=== PATIENT | male | born 1975 | race Caucasian/White ===

== ENCOUNTER 2018-04-09 17:11 | Emergency (ER) | payer OTHER ==
--- NOTE | 2018-04-09 17:28 | EDPHY ---
H & P Stated Complaint: Elevated blood pressure, arm discomfort Time Seen by Provider: 04/09/18 17:28 HPI/ROS: CHIEF COMPLAINT: Hypertension, chest discomfort HISTORY OF PRESENT ILLNESS: The patient presents to the ED with some vague discomfort in his left upper chest. The patient reported he noticed the symptoms earlier today. The patient does have a history of hypertension and had previously been on lisinopril. He started retaking the medication 3 days ago secondary to recurrent hypertension. The patient has no history of coronary artery disease. He has no other risk factors for heart disease. He denies any exertional chest pain or shortness of breath. The patient states that his symptoms may "just be psychosomatic" secondary to his recent re- initiation of medication for hypertension. REVIEW OF SYSTEMS: A comprehensive 10 point review of systems is otherwise negative aside from elements mentioned in the history of present illness. Source: Patient Exam Limitations: No limitations - Personal History Current Tetanus/Diphtheria Vaccine: No Current Tetanus Diphtheria and Acellular Pertussis (TDAP): No - Medical/Surgical History Hx Asthma: Yes Hx Chronic Respiratory Disease: No Hx Diabetes: No Hx Cardiac Disease: No Hx Renal Disease: No Hx Cirrhosis: No Hx Alcoholism: No Hx HIV/AIDS: No Hx Splenectomy or Spleen Trauma: No Other PMH: HTN, asthma, - Social History Smoking Status: Never smoked - Physical Exam Exam: General Appearance: Alert, no distress Eyes: Pupils equal and round no pallor or injection ENT, Mouth: Mucous membranes moist Respiratory: There are no retractions, lungs are clear to auscultation Cardiovascular: Regular rate and rhythm Gastrointestinal: Abdomen is soft and nontender, no masses, bowel sounds normal Neurological: 5/5 strength all 4 extremities Skin: Warm and dry, no rashes Musculoskeletal: Neck is supple nontender Extremities: symmetrical, full range of motion Constitutional: Initial Vital Signs Temperature (C) 36.6 C 04/09/18 17:22 Heart Rate 62 04/09/18 17:22 Respiratory Rate 16 04/09/18 17:22 Blood Pressure 157/93 H 04/09/18 17:22 O2 Sat (%) 97 04/09/18 17:22 O2 Delivery Mode Room Air Allergies/Adverse Reactions: No Known Allergies Allergy (Unverified 04/09/18 17:22) Home Medications: Medication Instructions Recorded Lisinopril 04/09/18 Medical Decision Making - Diagnostics EKG Interpretation: EKG: Complete interpretation has been separately recorded in the [email or web address] archive. Summary impression: Sinus rhythm, rate 60 ED Course/Re-evaluation: The patient presents to the ED after an episode of atypical chest pain. The patient has a normal EKG and negative troponin. The patient is felt to be low risk for ACS. The patient is also noted to have will control blood pressure in the emergency department. This point time I do feel the patient can follow up with his primary care provider. I have advised him to have a low threshold for seeking further evaluation with Cardiology for consideration of treadmill stress testing. The patient has been informed that we cannot fully exclude the presence of coronary artery disease based upon the testing in the ED. Patient is comfortable being discharged home. He is given customary aftercare and return precautions. Differential Diagnosis: Differential diagnosis considered includes acute coronary syndrome, pericarditis , hypertensive emergency, anxiety reaction, esophageal spasm - Data Points Laboratory Results: Laboratory Results 04/09/18 18:15 04/09/18 18:15 Sodium 141 mEq/L mEq/L (135-145) Potassium 4.4 mEq/L mEq/L (3.3-5.0) Chloride 104 mEq/L mEq/L (97-110) Carbon Dioxide 24 mEq/l mEq/l (22-31) Anion Gap 13 mEq/L mEq/L (8-16) BUN 16 mg/dL mg/dL (7-23) Creatinine 0.8 mg/dL mg/dL (0.7-1.3) Estimated GFR > 60 Glucose 107 mg/dL H mg/dL (70-100) Calcium 8.8 mg/dL mg/dL (8.5-10.4) Troponin I < 0.012 ng/mL ng/mL (0.000-0.034) Departure - Departure Disposition: Home, Routine, Self-Care Clinical Impression: Chest pain Condition: Good Instructions: Chest Pain (ED) Additional Instructions: 1. Based upon the testing done in the Emergency Department today we see no evidence of a heart attack. 2. We are unable to fully exclude coronary artery disease based upon the testing available in the Emergency Department. 3. For this reason, we would like you to be seen by cardiology for consideration of additional testing within the next 3 days. 4. Please contact the imaging center manager you have been referred to schedule this appointment as soon as possible. Their offices are typically open from 8:30am- 5pm M-F. 5. Please return to the Emergency Department immediately for any recurrent chest pain, difficulty breathing or other concerns. Referrals: Fatmata Klein MD [Medical Doctor] - As per Instructions
--- NOTE | 2018-04-09 17:33 | CPEKG ---
Heart Rate: 60 RR Interval: 1000 P-R Interval: 180 QRSD Interval: 88 QT Interval: 400 QTC Interval: 400 P [place]: 38 QRS [place]: 35 T Wave [place]: 43 EKG Severity - BORDERLINE ECG - EKG Impression: SINUS RHYTHM Electronically Signed By: Johnathan Ruth 09-Apr-2018 18:48:25
[2018-04-09 19:08] VITALS: BP 121/84
== END 2018-04-09 19:17 | disposition home or self-care (01) ==
DX: R07.9 Chest pain, unspecified (principal); I10 Essential (primary) hypertension; J45.909 Unspecified asthma, uncomplicated